=== PATIENT | male | born 1990 | race African-American/Black ===

== ENCOUNTER 2017-02-12 00:04 | Emergency (ER) | payer SELFPAY ==
[~2017-02-12] VITALS: Ht 185.4 cm; Wt 113.6 kg
[2017-02-12] MEDS ORDERED: SODIUM CHLORIDE 0.9% 1,000 ML IV ONE (00:14)
[2017-02-12] MEDS ORDERED: MORPHINE SULFATE 4 MG/ML CPJ (NOT FOR IM USE) IV STA (00:14)
[2017-02-12] MEDS ORDERED: CEFAZOLIN 1000MG PREMIX 50 ML IV ONE (00:15)
[2017-02-12] MEDS ORDERED: TETANUS, DIPHTHERIA, PERTUSSIS VAC/PF 0.5ML (>7YR OLD) IM ONE (00:15)
[2017-02-12 00:40] LABS: BASOPHILS % 0.5 % (0.0-2.0); HEMATOCRIT. 44.9 % (42.0-52.0); HEMOGLOBIN. 15.6 g/dL (14.0-18.0); LYMPHOCYTES % 21.7 % (20.0-50.0); MEAN CORPUSCULAR HEMOGLOBIN 29.5 pg (28.0-32.0); MEAN CORPUSCULAR VOLUME 85.3 fL (80.0-94.0); MEAN PLATELET VOLUME 8.3 fl (7.4-10.4); MONOCYTES % 6.1 % (2.0-8.0); NEUTROPHILS % 70.7 % (40.0-76.0); PLATELET 253 x1000/uL (130-400); RED BLOOD CELL COUNT 5.27 mill/uL (4.7-6.1); RED CELL DISTRIBUTION WIDTH 13.3 % (11.6-14.6)
[2017-02-12 00:42] LABS: CHLORIDE 103 mEq/L (98-107)
[2017-02-12 00:51] LABS: CARBON DIOXIDE 27 mEq/L (21-32)
[2017-02-12 00:52] VITALS: BP 154/96
[2017-02-12] MEDS ORDERED: IOHEXOL-300 100 ML BOTTLE ONE (01:21)
== END 2017-02-12 01:01 | disposition short-term general hospital (02) ==
LOC: ER 00:04
DX: S11.90XA Unspecified open wound of unspecified part of neck, initial encounter (principal); S01.80XA Unspecified open wound of other part of head, initial encounter; W34.00XA Accidental discharge from unspecified firearms or gun, initial encounter; Y93.89 Activity, other specified; Y92.89 Other specified places as the place of occurrence of the external cause; Y99.8 Other external cause status
CPT/HCPCS: 36415; 70486; 70491; 80053; 85025; 90471; 90715; 96365; 96375; 99291; J0690; J2270; J7030; Q9967

== ENCOUNTER 2017-11-16 16:19 | Emergency (ER) | payer SELFPAY ==
[~2017-11-16] VITALS: Ht 185.4 cm; Wt 113.0 kg
[2017-11-16] MEDS ORDERED: KETOROLAC 60MG/2ML VIAL IM ONE (17:45)
[2017-11-16 18:54] VITALS: BP 121/79
== END 2017-11-16 18:54 | disposition home or self-care (01) ==
LOC: ER 18:53
DX: S61.210A Laceration without foreign body of right index finger without damage to nail, initial encounter (principal); W23.0XXA Caught, crushed, jammed, or pinched between moving objects, initial encounter; Y93.89 Activity, other specified; Y92.89 Other specified places as the place of occurrence of the external cause; R03.0 Elevated blood-pressure reading, without diagnosis of hypertension
CPT/HCPCS: 12001; 73140; 96372; 99284; J1885; Z7610

== ENCOUNTER 2018-12-09 10:40 | Emergency (ER) | payer SELFPAY ==
[~2018-12-09] VITALS: Ht 182.9 cm; Wt 117.0 kg
[2018-12-09 10:54] VITALS: BP 135/86
[2018-12-09] MEDS ORDERED: ACETAMINOPHEN 325MG TABLET PO ONE (11:30)
== END 2018-12-09 11:40 | disposition home or self-care (01) ==
LOC: ER 10:40
DX: B34.9 Viral infection, unspecified (principal); H66.91 Otitis media, unspecified, right ear
CPT/HCPCS: 99282